=== PATIENT | male | born 1955 | race Caucasian/White ===

== ENCOUNTER 2018-07-03 18:56 | Emergency (ER) | payer SELFPAY ==
[~2018-07-03] VITALS: Ht 172.7 cm; Wt 79.4 kg
[2018-07-03 18:57] VITALS: BP 159/100; Ht 172.7 cm; Wt 79.4 kg
== END 2018-07-03 21:47 | disposition left against medical advice (07) ==
LOC: ED 18:56
DX: S91.312A Laceration without foreign body, left foot, initial encounter (principal); I10 Essential (primary) hypertension; E11.9 Type 2 diabetes mellitus without complications; E78.00 Pure hypercholesterolemia, unspecified; F17.210 Nicotine dependence, cigarettes, uncomplicated; Y04.8XXA Assault by other bodily force, initial encounter; Y93.89 Activity, other specified; Y92.89 Other specified places as the place of occurrence of the external cause; Y99.8 Other external cause status
CPT/HCPCS: J2001